=== PATIENT | male | born 2000 | race Caucasian/White ===

== ENCOUNTER 2021-08-22 15:10 | Emergency (ER) | payer BC ==
[~2021-08-22] VITALS: Ht 180.3 cm; Wt 68.0 kg
[~2021-08-22 15:10] MED LIST: ACETAMINOPHEN-120 ML PO; NOHOMEMEDICATIONS
[2021-08-22 17:57] VITALS: BP 160/82
== END 2021-08-22 18:01 | disposition home or self-care (01) ==
LOC: M.ERS 15:10
DX: S60.012A Contusion of left thumb without damage to nail, initial encounter (principal); F17.210 Nicotine dependence, cigarettes, uncomplicated; W01.0XXA Fall on same level from slipping, tripping and stumbling without subsequent striking against object, initial encounter; Y93.89 Activity, other specified; Y92.89 Other specified places as the place of occurrence of the external cause; Y99.8 Other external cause status